=== PATIENT | male | born 1950 | race Caucasian/White ===

== ENCOUNTER 2025-03-02 13:43 | Inpatient (IN) | payer MEDICARE, OTHER ==
[~2025-03-02] VITALS: Ht 177.8 cm; Wt 77.6 kg
[2025-03-02 09:10] VITALS: BP 124/62; PULSE 70; RESP 20; TEMP 36.5848
[2025-03-02 13:45] VITALS: O2SAT 97
[2025-03-02 14:42] LABS: BASOPHILS % 0.3 % (0.0-2.0); EOSINOPHILS % 0.3 % (0.0-5.0); HEMATOCRIT. 32.2 % (42.0-52.0); HEMOGLOBIN. 10.9 g/dL (14.0-18.0); LYMPHOCYTES % 7.4 % (20.0-50.0); MEAN PLATELET VOLUME 8.2 fl (7.4-10.4); MONOCYTES % 5.9 % (2.0-8.0); NEUTROPHILS % 86.1 % (40.0-76.0); PLATELET 224 x1000/uL (130-400); RED BLOOD CELL COUNT 3.38 mill/uL (4.7-6.1); RED CELL DISTRIBUTION WIDTH 13.5 % (11.6-14.6)
[2025-03-02 14:49] LABS: CREATININE 0.7 mg/dL (0.6-1.3); INR 1.1
[2025-03-02 14:50] LABS: UREA NITROGEN BLOOD 16 mg/dL (9-23)
[2025-03-02 14:51] LABS: ASPARTATE AMINOTRANSFERASE 13 IU/L (<34)
[2025-03-02 14:52] LABS: BILIRUBIN DIRECT 0.3 mg/dL (<=3.0); BILIRUBIN TOTAL 0.9 mg/dL (0.1-1.0); PROTEIN TOTAL 6.5 g/dL (6.0-8.3)
[2025-03-02] MEDS ORDERED: CEFTRIAXONE 1GM/50ML 50 ML IV ONE (15:30)
[2025-03-02 15:55] LABS: INFLUENZA TYPE A Presumptive Negative (Pres. Neg.); INFLUENZA TYPE B Presumptive Negative (Pres. Neg.); RESPIRATORY SYNCYTIAL VIRUS Not Detected (Not Detectd)
[2025-03-02] MEDS: CEFTRIAXONE 1GM/50ML 50 ML IV ONE (16:03)
[2025-03-02] MEDS: AZITHROMYCIN 500MG/250ML 250 ML IV ONE (16:22)
[2025-03-02] MEDS ORDERED: ONDANSETRON HCL 4MG/2ML INJ IV PRN (17:15)
[2025-03-02] MEDS ORDERED: CLONIDINE 0.1MG TABLET PO PRN (17:15)
[2025-03-02] MEDS ORDERED: IPRATROPIUM/ALBUTEROL 0.5-3(2.5)MG/3ML NEB HHN PRN (17:15)
[2025-03-02] MEDS ORDERED: ACETAMINOPHEN 650MG SUPP PR PRN ×2 (17:15)
[2025-03-02] MEDS: ENOXAPARIN 40MG/0.4ML SYR SUBCUT SCH (18:13)
[2025-03-02] MEDS: PIPERACILLIN/TAZO 3.375G/50ML 50 ML IV SCH (18:44)
[2025-03-02] MEDS ORDERED: BENZONATATE 100MG CAPSULE PO PRN (19:00)
[2025-03-02] MEDS: MIDODRINE HCL 5MG TABLET PO SCH (19:00)
[2025-03-02] MEDS: MEMANTINE HCL 10MG TABLET PO SCH (23:10)
[2025-03-02] MEDS: ATORVASTATIN CALCIUM 40MG TABLET PO SCH (23:10)
[2025-03-03] VITALS: BP 128/74; PULSE 61; RESP 17; TEMP 37.5; O2SAT 98
[2025-03-03] MEDS ORDERED: BUPR100T13 PO (01:14)
[2025-03-03] MEDS ORDERED: DEXTL PO (01:14)
[2025-03-03] MEDS ORDERED: MEMA5TAB16 MT (01:14)
[2025-03-03] MEDS ORDERED: MELA1TAB28 MT (01:14)
[2025-03-03] MEDS ORDERED: MIDO5TAB4 MT (01:14)
[2025-03-03] MEDS ORDERED: CETI10TA11 MT (01:14)
[2025-03-03] MEDS ORDERED: APIX5TAB PO (01:14)
[2025-03-03] MEDS ORDERED: DROX200C PO (01:14)
[2025-03-03] MEDS ORDERED: PIMA10TA PO (01:14)
[2025-03-03] MEDS ORDERED: CEPH500C2 MT (01:14)
[2025-03-03] MEDS ORDERED: CALC-1098 MT (01:14)
[2025-03-03] MEDS ORDERED: SERT-422 MT (01:14)
[2025-03-03] MEDS ORDERED: CHOL400D2 PO (01:14)
[2025-03-03] MEDS ORDERED: FLUD0.1T PO (01:14)
[2025-03-03] MEDS ORDERED: ATOR-2 MT (01:14)
[2025-03-03 04:00] VITALS: BP 121/65; PULSE 62; RESP 18; TEMP 36.6; O2SAT 97
[2025-03-03 08:00] VITALS: BP 120/88; PULSE 54; RESP 18; TEMP 37; O2SAT 100
[2025-03-03] MEDS: FOLIC ACID 1MG TABLET PO SCH (10:26)
[2025-03-03] MEDS: BUPROPION HCL 150MG SR TABLET PO SCH (10:26)
[2025-03-03] MEDS: SERTRALINE HCL 50MG TABLET PO SCH (10:26)
[2025-03-03] MEDS: MULTIVITAMINS,THER W-MINERALS TABLET PO SCH (10:26)
[2025-03-03 12:00] VITALS: BP 118/74; PULSE 60; RESP 20; TEMP 36.9; O2SAT 100
[2025-03-03 16:00] VITALS: BP 121/66; PULSE 60; RESP 20; TEMP 36.7; O2SAT 100
[2025-03-03 20:00] VITALS: BP 133/78; PULSE 66; RESP 20; TEMP 36.4; O2SAT 97
[2025-03-04] VITALS: BP 124/74; PULSE 70; RESP 20; TEMP 36.4; O2SAT 98
[2025-03-04 04:00] VITALS: BP 126/92; PULSE 72; RESP 20; TEMP 36.3; O2SAT 97
[2025-03-04 08:00] VITALS: BP 134/81; PULSE 56; RESP 20; TEMP 36.2; O2SAT 97
[2025-03-04 12:00] VITALS: BP 134/75; PULSE 58; RESP 18; TEMP 36.4; O2SAT 97
[2025-03-04 14:22] LABS: BASOPHILS % 0.5 % (0.0-2.0); EOSINOPHILS % 1.5 % (0.0-5.0); HEMATOCRIT. 35.3 % (42.0-52.0); HEMOGLOBIN. 11.7 g/dL (14.0-18.0); LYMPHOCYTES % 9.4 % (20.0-50.0); MEAN PLATELET VOLUME 8.5 fl (7.4-10.4); MONOCYTES % 7.7 % (2.0-8.0); NEUTROPHILS % 80.9 % (40.0-76.0); PLATELET 290 x1000/uL (130-400); RED BLOOD CELL COUNT 3.71 mill/uL (4.7-6.1); RED CELL DISTRIBUTION WIDTH 13.2 % (11.6-14.6)
[2025-03-04 14:34] LABS: CREATININE 0.6 mg/dL (0.6-1.3); UREA NITROGEN BLOOD 16 mg/dL (9-23)
[2025-03-04 14:36] LABS: PHOSPHORUS 2.0 mg/dL (2.5-4.9)
[2025-03-04 16:00] VITALS: BP 123/72; PULSE 60; RESP 20; TEMP 36.2; O2SAT 97
[2025-03-04] MEDS: SODIUM PHOSPHATE 10 MMOL in DEXT 5% WATER 246.6667 ML IV SCH (18:47)
[2025-03-04 20:00] VITALS: BP 141/79; PULSE 63; RESP 18; TEMP 36.6; O2SAT 98
[2025-03-05] VITALS: BP 144/75; PULSE 91; RESP 18; TEMP 36.6; O2SAT 98
[2025-03-05 04:00] VITALS: BP 120/76; PULSE 61; RESP 18; TEMP 36.8; O2SAT 98
[2025-03-05 08:00] VITALS: BP 131/74; PULSE 82; RESP 18; TEMP 37.2; O2SAT 96
[2025-03-05 09:53] LABS: BASOPHILS % 0.5 % (0.0-2.0); EOSINOPHILS % 1.8 % (0.0-5.0); HEMATOCRIT. 35.4 % (42.0-52.0); HEMOGLOBIN. 11.8 g/dL (14.0-18.0); LYMPHOCYTES % 14.7 % (20.0-50.0); MEAN PLATELET VOLUME 7.9 fl (7.4-10.4); MONOCYTES % 7.4 % (2.0-8.0); NEUTROPHILS % 75.6 % (40.0-76.0); PLATELET 305 x1000/uL (130-400); RED BLOOD CELL COUNT 3.72 mill/uL (4.7-6.1); RED CELL DISTRIBUTION WIDTH 13.8 % (11.6-14.6)
[2025-03-05 10:03] LABS: CREATININE 0.6 mg/dL (0.6-1.3); UREA NITROGEN BLOOD 15 mg/dL (9-23)
[2025-03-05 10:05] LABS: PHOSPHORUS 2.7 mg/dL (2.5-4.9)
[2025-03-05 12:38] VITALS: BP 126/85; PULSE 61; RESP 18; TEMP 36.6; O2SAT 98
[2025-03-05] MEDS: MIDODRINE HCL 5MG TABLET PO SCH (13:00)
[2025-03-05 17:07] VITALS: BP 107/65; PULSE 60; RESP 18; TEMP 37.1; O2SAT 95
[2025-03-05 20:00] VITALS: BP 146/70; PULSE 57; RESP 16; TEMP 36; O2SAT 95
[2025-03-05] MEDS: MEMANTINE HCL 5MG TABLET PO SCH (21:20)
[2025-03-06] VITALS: BP 138/72; PULSE 66; RESP 17; TEMP 36.3; O2SAT 91
[2025-03-06 04:00] VITALS: BP 130/69; PULSE 70; RESP 16; TEMP 35.9; O2SAT 97
[2025-03-06 10:29] VITALS: BP 133/73; PULSE 65; RESP 18; TEMP 37; O2SAT 96
[2025-03-06 12:00] VITALS: BP 142/77; PULSE 62; RESP 20; TEMP 37.2; O2SAT 97
[2025-03-06 16:50] VITALS: BP 140/88; PULSE 62; RESP 18; TEMP 37.2; O2SAT 98
[2025-03-06 20:00] VITALS: BP 127/75; PULSE 61; RESP 18; TEMP 36.6; O2SAT 97
[2025-03-07] VITALS: BP 142/90; PULSE 67; RESP 18; TEMP 36.2; O2SAT 98
[2025-03-07 04:00] VITALS: BP 136/79; PULSE 58; RESP 18; TEMP 36.7; O2SAT 97
[2025-03-07 08:00] VITALS: BP 149/83; PULSE 97; RESP 20; TEMP 36.6; O2SAT 99
[2025-03-07 12:00] VITALS: BP 118/61; PULSE 63; RESP 18; TEMP 36.1; O2SAT 93
[2025-03-07 16:00] VITALS: BP 103/57; PULSE 80; RESP 15; TEMP 36.3; O2SAT 94
[2025-03-07 20:00] VITALS: BP 130/75; PULSE 70; RESP 20; TEMP 36.3; O2SAT 95
[2025-03-08] VITALS: BP 136/76; PULSE 64; RESP 16; TEMP 36.4; O2SAT 96
[2025-03-08 04:00] VITALS: BP 134/68; PULSE 60; RESP 16; TEMP 36.2; O2SAT 97
[2025-03-08 12:00] VITALS: BP 133/96; PULSE 60; RESP 17; TEMP 36.4; O2SAT 94
[2025-03-08] MEDS ORDERED: AMOX1TAB16 MT (12:23)
[2025-03-08 16:00] VITALS: BP 110/69; PULSE 68; RESP 19; TEMP 36.2; O2SAT 96
[2025-03-08 20:00] VITALS: BP 137/78; PULSE 60; RESP 18; TEMP 36.7; O2SAT 96
[2025-03-08] MEDS: AMOXICILLIN/POTASSIUM CLAVULANATE 875/125MG TAB PO SCH (20:11)
[2025-03-09] VITALS: BP 120/69; PULSE 60; RESP 19; TEMP 36.8; O2SAT 95
[2025-03-09 04:00] VITALS: BP 139/78; PULSE 63; RESP 17; TEMP 36.9; O2SAT 99
[2025-03-09 08:00] VITALS: BP 126/66; PULSE 57; RESP 17; TEMP 36.1; O2SAT 100
[2025-03-09 12:00] VITALS: BP 113/68; PULSE 62; RESP 18; TEMP 36.3; O2SAT 100
[2025-03-09 16:00] VITALS: BP 99/56; PULSE 58; RESP 17; TEMP 36.3; O2SAT 99
[2025-03-09 20:00] VITALS: BP 137/72; PULSE 68; RESP 17; TEMP 36.2; O2SAT 96
[2025-03-10] VITALS: BP 106/82; PULSE 70; RESP 18; TEMP 36.4; O2SAT 97
[2025-03-10 04:00] VITALS: BP 131/70; PULSE 64; RESP 18; TEMP 36.2; O2SAT 95
[2025-03-10 08:00] VITALS: BP 112/65; PULSE 59; RESP 18; TEMP 36.5; O2SAT 98
[2025-03-10 12:00] VITALS: BP 105/63; PULSE 61; RESP 17; TEMP 36.2; O2SAT 94
[2025-03-10 16:00] VITALS: BP 146/83; PULSE 65; RESP 17; TEMP 36.3; O2SAT 95
[2025-03-10 20:00] VITALS: BP 109/63; PULSE 63; RESP 20; TEMP 36.6; O2SAT 95
[2025-03-11] VITALS: BP 134/82; PULSE 64; RESP 20; TEMP 36.4; O2SAT 95
[2025-03-11 04:00] VITALS: BP 116/66; PULSE 61; RESP 20; TEMP 36.3; O2SAT 95
[2025-03-11 08:00] VITALS: BP 96/66; PULSE 65; RESP 20; TEMP 36.3; O2SAT 97
[2025-03-11 12:00] VITALS: BP 105/63; PULSE 66; RESP 20; TEMP 35.8; O2SAT 99
[2025-03-11 16:00] VITALS: BP 119/72; PULSE 62; RESP 19; TEMP 36.4; O2SAT 97
[2025-03-11 20:00] VITALS: BP 102/66; PULSE 65; RESP 18; TEMP 36.4; O2SAT 98
[2025-03-12] VITALS: BP 110/76; PULSE 63; RESP 18; TEMP 36.6; O2SAT 97
[2025-03-12 04:00] VITALS: BP 115/71; PULSE 52; RESP 17; TEMP 36.3; O2SAT 98
[2025-03-12 20:00] VITALS: BP 114/64; PULSE 70; RESP 18; TEMP 36.4; O2SAT 98
[2025-03-13] VITALS: BP 102/57; PULSE 65; RESP 17; TEMP 36.3; O2SAT 99
[2025-03-13 04:00] VITALS: BP 98/71; PULSE 58; RESP 17; TEMP 36.1; O2SAT 98
[2025-03-13 08:00] VITALS: BP 122/76; PULSE 60; RESP 12; TEMP 35.2; O2SAT 97
[2025-03-13 12:00] VITALS: BP 124/78; PULSE 74; RESP 18; TEMP 36.3; O2SAT 97
[2025-03-13 16:00] VITALS: BP 124/78; PULSE 74; RESP 18; TEMP 36.3; O2SAT 97
[2025-03-13 20:00] VITALS: BP 117/72; PULSE 76; RESP 18; TEMP 36.1; O2SAT 97
[2025-03-14] VITALS (7 sets, daily range): BP systolic 90–125; BP diastolic 60–80; PULSE 59–78; RESP 17–18; TEMP 36.1–36.5; O2SAT 95–98
[2025-03-14] MEDS ORDERED: GUAIFENESIN-DM 200MG-20MG/10ML UDC PO PRN (20:30)
[2025-03-15] VITALS: BP 121/72; PULSE 67; RESP 18; TEMP 36.7; O2SAT 98
[2025-03-15 04:00] VITALS: BP 114/70; PULSE 60; RESP 19; TEMP 36.6; O2SAT 96
[2025-03-15 08:00] VITALS: BP 107/86; PULSE 63; RESP 19; TEMP 36.4; O2SAT 96
[2025-03-15 12:00] VITALS: BP 117/60; RESP 19; TEMP 36.6; O2SAT 95
== END 2025-03-15 15:55 | DRG 91 ==
LOC: ER 14:43 → EDBEDREQTM 17:19 → EDBEDREQ 17:46 → ENRESERV 20:09 → 7WST 21:17 → 8EST 03-07 18:36
PROVIDERS: ADMIT Student in an Organized Health Care Education/Training Program; ATTEND Student in an Organized Health Care Education/Training Program
DX: G92.8 Other toxic encephalopathy (principal); E43 Unspecified severe protein-calorie malnutrition; J18.9 Pneumonia, unspecified organism; G31.83 Neurocognitive disorder with Lewy bodies; Z20.822 Contact with and (suspected) exposure to COVID-19; F02.80 Dementia in other diseases classified elsewhere, unspecified severity, without behavioral disturbance, psychotic disturbance, mood disturbance, and anxiety; Z87.440 Personal history of urinary (tract) infections; N21.0 Calculus in bladder; Z68.24 Body mass index [BMI] 24.0-24.9, adult
CPT/HCPCS: 36415; 71045; 80048; 80076; 82140; 83735; 83880; 84100; 85025; 87420; 87426; 87804; 93005; 96365; 97162; 97166; 99285; A4606; J0456; J0696; J1650; J2543; J3490; J7060